=== PATIENT | female | born 1990 | race Caucasian/White ===

== ENCOUNTER 2022-10-02 17:19 | Emergency (ER) | payer OTHER, SELFPAY ==
[2022-10-02 17:31] VITALS: BP 103/59; PULSE 81; RESP 18; TEMP 36.4; O2SAT 100
== END 2022-10-02 17:37 | disposition left against medical advice (07) ==
PROVIDERS: Emergency Provider Nurse Practitioner Family
DX: Z53.21 Procedure and treatment not carried out due to patient leaving prior to being seen by health care provider (principal)
CPT/HCPCS: 99199